=== PATIENT | male | born 1965 | race Two or more races ===

== ENCOUNTER 2017-10-15 16:49 | Emergency (ER) | payer OTHER ==
[~2017-10-15] VITALS: Ht 172.7 cm; Wt 90.7 kg
[2017-10-15] MEDS ORDERED: ACETAMINOPHEN 325 MG TAB PO ONE (17:15)
[2017-10-15] MEDS ORDERED: HYDROcodone-ACET 5/325MG TAB PO ONE (21:00)
[2017-10-15 21:20] VITALS: BP 118/88
== END 2017-10-15 21:31 | disposition home or self-care (01) ==
LOC: ER 16:49
DX: S63.284A Dislocation of proximal interphalangeal joint of right ring finger, initial encounter (principal); X58.XXXA Exposure to other specified factors, initial encounter; Y93.89 Activity, other specified; Y92.89 Other specified places as the place of occurrence of the external cause; Y99.8 Other external cause status
CPT/HCPCS: 26770; 73120